=== PATIENT | male | born 1990 | race African-American/Black ===

== ENCOUNTER 2016-07-14 21:39 | Inpatient (IN) | payer OTHER ==
[~2016-07-14] VITALS: Ht 187.9 cm; Wt 119.3 kg
[2016-07-14 21:39] VITALS: BP 120/67
[~2016-07-14 21:39] MED LIST: CIPRO500 MG PO
[2016-07-14 22:00] VITALS: BP 130/73
[2016-07-14 22:10] LABS: BASO # 0.1 10*3/uL (0.0-0.1); BASO % 0.3 % (0.0-1.0); EOS # 0.1 10*3/uL (0.0-0.4); EOS % 0.3 % (1.0-4.0); HEMATOCRIT 48.8 % (42.0-52.0); HEMOGLOBIN 16.1 g/dl (14.0-18.0); IG # 0.1 10*3/uL (0.0-0.1); LYMPH # 1.4 10*3/uL (1.3-4.4); LYMPH % 7.4 % (27.0-41.0); MEAN PLATELET VOLUME 9.6 fl (9.6-12.3); MONO # 0.4 10*3/uL (0.1-1.0); MONO % 1.9 % (3.0-9.0); NEUT # 17.3 10*3/uL (2.3-7.9); NEUT % 89.5 % (47.0-73.0); PLATELET COUNT AUTOMATED 206 10*3/uL (130-400); RED BLOOD COUNT 5.74 10*6/uL (4.50-5.90); RED CELL DISTRI WIDTH 13.2 % (0-14.5); WHITE BLOOD COUNT 19.4 10*3/uL (4.8-10.8)
[2016-07-14 22:30] LABS: ALBUMIN 4.2 gm/dl (3.1-4.5); ALKALINE PHOSPHATASE 55 U/L (45-117); BILIRUBIN, TOTAL 0.4 mg/dl (0.2-1.0); BUN 16 mg/dl (7-24); CARBON DIOXIDE 25 mmol/L (21-32); CHLORIDE 104 mmol/L (98-107); EST GLOM FILT AFRICAN AMERICAN > 60 ml/min; GLUCOSE 175 mg/dL (65-99); POTASSIUM 4.4 mmol/L (3.5-5.1); SGOT/AST 79 IU/L (3-35); SGPT/ALT 275 U/L (12-78); SODIUM 142 mmol/L (136-145); TOTAL PROTEIN 8.2 gm/dL (6.4-8.2); TROPONIN I 0.036 ng/ml (<0.5)
[2016-07-14 22:56] VITALS: BP 121/76
[2016-07-15 00:44] VITALS: BP 142/72
[2016-07-15 00:48] LABS: BILIRUBIN NEGATIVE (NEGATIVE); BLOOD NEGATIVE (NEGATIVE); CLARITY CLEAR (CLEAR); COLOR YELLOW (YELLOW); GLUCOSE TRACE (NEGATIVE); KETONE NEGATIVE (NEGATIVE); LEUKO ESTERASE NEGATIVE (NEGATIVE); NITRITE NEGATIVE (NEGATIVE); PROTEIN 1+ (NEGATIVE); UROBILINOGEN 0.2 E.U./dl (0.2-1.0)
[2016-07-15 01:03] LABS: URINE AMPHETAMINES < 1000 (1000ng/ml); URINE BARBITURATES < 200 (200ng/ml); URINE COCAINE > 300 (300ng/ml); URINE REFLEX COMMENT NO (NO); WBC 0-2 wbc/hpf (0-5)
[2016-07-15 01:10] VITALS: BP 130/66
[2016-07-15 02:49] LABS: LA>2 REFLEX 2 HR DRAW NOW
[2016-07-15 02:55] LABS: LA>2 RFLX FOLLOW UP AT 2 HRS 2.2 mmol/L (0.4-2.0)
[2016-07-15 04:00] VITALS: BP 125/51
[2016-07-15 04:50] LABS: LA>2 REFLEX 4 HR DRAW NOW
[2016-07-15 05:55] LABS: BASO % 0.2 % (0.0-1.0); HEMATOCRIT 46.4 % (42.0-52.0); HEMOGLOBIN 15.2 g/dl (14.0-18.0); IG # 0.1 10*3/uL (0.0-0.1); LYMPH # 1.7 10*3/uL (1.3-4.4); LYMPH % 10.4 % (27.0-41.0); MEAN CELL VOLUME 83.6 fl (80.0-94.0); MEAN CORPUSCULAR HGB 27.4 pg (27.0-31.0); MEAN CORPUSCULAR HGB CONC 32.8 g/dl (33.0-37.0); MEAN PLATELET VOLUME 9.5 fl (9.6-12.3); MONO # 1.1 10*3/uL (0.1-1.0); MONO % 6.7 % (3.0-9.0); NEUT # 13.6 10*3/uL (2.3-7.9); NEUT % 82.3 % (47.0-73.0); PLATELET COUNT AUTOMATED 226 10*3/uL (130-400); RED BLOOD COUNT 5.55 10*6/uL (4.50-5.90); RED CELL DISTRI WIDTH 13.1 % (0-14.5); WHITE BLOOD COUNT 16.6 10*3/uL (4.8-10.8)
[2016-07-15 06:00] LABS: ALBUMIN 4.1 gm/dl (3.1-4.5); ALKALINE PHOSPHATASE 49 U/L (45-117); BILIRUBIN, TOTAL 0.7 mg/dl (0.2-1.0); BUN 14 mg/dl (7-24); CARBON DIOXIDE 34 mmol/L (21-32); CHLORIDE 103 mmol/L (98-107); EST GLOM FILT AFRICAN AMERICAN > 60 ml/min; FREE T4 1.24 ng/dl (0.76-1.46); GLUCOSE 85 mg/dL (65-99); MAGNESIUM 2.3 mg/dL (1.5-2.1); POTASSIUM 5.1 mmol/L (3.5-5.1); SGOT/AST 76 IU/L (3-35); SGPT/ALT 261 U/L (12-78); SODIUM 141 mmol/L (136-145); THYROID STIM HORMONE (HS) 0.643 uIU/ml (0.358-4.75); TOTAL PROTEIN 7.5 gm/dL (6.4-8.2)
[2016-07-15 08:00] VITALS: BP 125/50
[2016-07-15] MEDS ORDERED: LEVAQUIN750 M1 PO (10:03)
[2016-07-20 09:26] LABS: HEPATITIS C VIRUS ANTIBODY >11.0 s/co (0.0-0.9)
== END 2016-07-15 10:35 | disposition home or self-care (01) | DRG 917 ==
LOC: ED 21:39 → EDHOLD 07-15 00:02 → 4E 07-15 00:42 → ICCU 07-15 01:12
PROVIDERS: Student in an Organized Health Care Education/Training Program
DX: T40.1X1A Poisoning by heroin, accidental (unintentional), initial encounter (principal); A41.9 Sepsis, unspecified organism; R65.20 Severe sepsis without septic shock; J69.0 Pneumonitis due to inhalation of food and vomit; E87.2 Acidosis; N17.9 Acute kidney failure, unspecified; S70.01XA Contusion of right hip, initial encounter; E83.51 Hypocalcemia; F14.10 Cocaine abuse, uncomplicated; F12.10 Cannabis abuse, uncomplicated; E66.9 Obesity, unspecified; Z80.9 Family history of malignant neoplasm, unspecified; Z79.899 Other long term (current) drug therapy; Y92.89 Other specified places as the place of occurrence of the external cause; X58.XXXA Exposure to other specified factors, initial encounter; Y93.89 Activity, other specified; Y99.8 Other external cause status; Z68.33 Body mass index [BMI] 33.0-33.9, adult

== ENCOUNTER 2017-03-31 19:58 | Emergency (ER) | payer OTHER ==
[~2017-03-31] VITALS: Ht 187.9 cm; Wt 108.0 kg
[~2017-03-31 19:58] MED LIST changes: +LEVAQUIN750 M1 PO
[2017-03-31] MEDS ORDERED: CYCLOBENZAPRINE10 MG PO (22:10)
[2017-03-31] MEDS ORDERED: MEDROL DOSEPAK4 MG PO (22:10)
[2017-03-31] MEDS ORDERED: NAPROSYN500 MG PO (22:10)
== END 2017-03-31 22:36 | disposition home or self-care (01) ==
LOC: ED 19:58
DX: M54.12 Radiculopathy, cervical region (principal); F12.10 Cannabis abuse, uncomplicated; F17.200 Nicotine dependence, unspecified, uncomplicated; F14.10 Cocaine abuse, uncomplicated; Z79.899 Other long term (current) drug therapy

== ENCOUNTER 2017-05-10 20:23 | Emergency (ER) | payer OTHER ==
[~2017-05-10] VITALS: Ht 187.9 cm; Wt 112.0 kg
[~2017-05-10 20:23] MED LIST changes: +CYCLOBENZAPRINE10 MG PO; +MEDROL DOSEPAK4 MG PO; +NAPROSYN500 MG PO
[2017-05-10 20:58] LABS: BASO # 0.1 10*3/uL (0.0-0.1); BASO % 0.4 % (0.0-1.0); EOS # 0.1 10*3/uL (0.0-0.4); HEMATOCRIT 44.6 % (42.0-52.0); HEMOGLOBIN 14.8 g/dl (14.0-18.0); LYMPH # 1.6 10*3/uL (1.3-4.4); LYMPH % 12.1 % (27.0-41.0); MEAN CELL VOLUME 83.1 fl (80.0-94.0); MEAN CORPUSCULAR HGB 27.6 pg (27.0-31.0); MEAN CORPUSCULAR HGB CONC 33.2 g/dl (33.0-37.0); MEAN PLATELET VOLUME 9.4 fl (9.6-12.3); MONO # 0.5 10*3/uL (0.1-1.0); MONO % 3.7 % (3.0-9.0); NEUT % 82.3 % (47.0-73.0); PLATELET COUNT AUTOMATED 211 10*3/uL (130-400); RED BLOOD COUNT 5.37 10*6/uL (4.50-5.90); RED CELL DISTRI WIDTH 13.2 % (0-14.5); WHITE BLOOD COUNT 13.3 10*3/uL (4.8-10.8)
[2017-05-10 21:15] LABS: ALBUMIN 3.6 gm/dl (3.1-4.5); ALKALINE PHOSPHATASE 53 U/L (45-117); BUN 12 mg/dl (7-24); CHLORIDE 106 mmol/L (98-107); CREATININE 1.08 mg/dL (0.70-1.30); POTASSIUM 3.6 mmol/L (3.5-5.1); SGOT/AST 37 IU/L (3-35); SGPT/ALT 95 U/L (12-78); SODIUM 141 mmol/L (136-145)
[2017-05-10 21:17] LABS: TROPONIN I < 0.015 ng/ml (<0.045)
== END 2017-05-11 00:05 | disposition left against medical advice (07) ==
LOC: ED 20:23
PROVIDERS: Student in an Organized Health Care Education/Training Program
DX: T40.1X1A Poisoning by heroin, accidental (unintentional), initial encounter (principal); J96.90 Respiratory failure, unspecified, unspecified whether with hypoxia or hypercapnia; R51 Headache; F17.200 Nicotine dependence, unspecified, uncomplicated; F12.10 Cannabis abuse, uncomplicated; F14.10 Cocaine abuse, uncomplicated; E66.9 Obesity, unspecified; Z68.34 Body mass index [BMI] 34.0-34.9, adult; Z79.899 Other long term (current) drug therapy; Y92.9 Unspecified place or not applicable

== ENCOUNTER 2017-05-30 22:57 | Emergency (ER) | payer OTHER ==
[~2017-05-30] VITALS: Ht 182.8 cm; Wt 108.9 kg
--- NOTE | ~2017-05-30 | EKG ---
[place], [place] ELECTROCARDIOGRAM REPORT NAME: MARYCRUZ HERNANDEZ UNIT #: [id number] ROOM: DOCTOR: EZRA LEE,KEITH BIRTHDATE: [birth year] DOS: 05/30/2017 TIME: 2255 hours. IMPRESSION: 1. Sinus rhythm. 2. Sinus tachycardia. 3. Nonspecific ST-T changes. 4. Normal QT interval. KEITH MUNGUIA MD CM:EKGRPT:ELECTROCARDIOGRAM REPORT [id number] KEITH MUNGUIA MD
[2017-05-30 23:59] LABS: BASO % 0.3 % (0.0-1.0); EOS # 0.1 10*3/uL (0.0-0.4); EOS % 1.1 % (1.0-4.0); HEMATOCRIT 47.5 % (42.0-52.0); HEMOGLOBIN 15.9 g/dl (14.0-18.0); LYMPH # 1.8 10*3/uL (1.3-4.4); LYMPH % 16.4 % (27.0-41.0); MEAN CELL VOLUME 81.8 fl (80.0-94.0); MEAN CORPUSCULAR HGB 27.4 pg (27.0-31.0); MEAN CORPUSCULAR HGB CONC 33.5 g/dl (33.0-37.0); MEAN PLATELET VOLUME 9.8 fl (9.6-12.3); MONO # 0.5 10*3/uL (0.1-1.0); NEUT # 8.7 10*3/uL (2.3-7.9); NEUT % 77.8 % (47.0-73.0); PLATELET COUNT AUTOMATED 258 10*3/uL (130-400); RED BLOOD COUNT 5.81 10*6/uL (4.50-5.90); WHITE BLOOD COUNT 11.1 10*3/uL (4.8-10.8)
[2017-05-31 00:23] LABS: ALKALINE PHOSPHATASE 65 U/L (45-117); BUN 13 mg/dl (7-24); CHLORIDE 104 mmol/L (98-107); CREATININE 0.97 mg/dL (0.70-1.30); POTASSIUM 3.5 mmol/L (3.5-5.1); SGOT/AST 70 IU/L (3-35); SGPT/ALT 157 U/L (12-78); SODIUM 141 mmol/L (136-145)
[2017-05-31 00:25] LABS: ETHYL ALCOHOL < 3.0 mg/dl (<3); TROPONIN I < 0.015 ng/ml (<0.045)
== END 2017-05-31 00:27 | disposition home or self-care (01) ==
LOC: ED 22:57
PROVIDERS: Emergency Medicine Emergency Medical Services
DX: T50.7X1A Poisoning by analeptics and opioid receptor antagonists, accidental (unintentional), initial encounter (principal); F10.10 Alcohol abuse, uncomplicated; F12.10 Cannabis abuse, uncomplicated; Z79.899 Other long term (current) drug therapy; Z68.30 Body mass index [BMI] 30.0-30.9, adult; Y92.89 Other specified places as the place of occurrence of the external cause

== ENCOUNTER 2017-09-04 21:13 | Emergency (ER) | payer OTHER ==
[~2017-09-04] VITALS: Ht 187.9 cm; Wt 112.0 kg
[2017-09-04] MEDS ORDERED: CLINDAMYCIN150 MG PO (21:25)
[2017-09-04] MEDS ORDERED: NAPROSYN500 MG PO (21:25)
== END 2017-09-04 21:40 | disposition home or self-care (01) ==
LOC: ED 21:13
DX: K02.51 Dental caries on pit and fissure surface limited to enamel (principal); F17.200 Nicotine dependence, unspecified, uncomplicated; E66.9 Obesity, unspecified; F14.10 Cocaine abuse, uncomplicated; F12.10 Cannabis abuse, uncomplicated; Z68.30 Body mass index [BMI] 30.0-30.9, adult

== ENCOUNTER 2018-07-03 18:52 | Emergency (ER) | payer OTHER ==
[~2018-07-03] VITALS: Ht 187.9 cm; Wt 113.4 kg
[~2018-07-03 18:52] MED LIST changes: +CLINDAMYCIN150 MG PO
== END 2018-07-03 22:14 | disposition home or self-care (01) ==
LOC: ED 18:52
DX: S09.90XA Unspecified injury of head, initial encounter (principal); E66.9 Obesity, unspecified; F17.200 Nicotine dependence, unspecified, uncomplicated; Z79.2 Long term (current) use of antibiotics; Z79.899 Other long term (current) drug therapy; Z68.30 Body mass index [BMI] 30.0-30.9, adult; X58.XXXA Exposure to other specified factors, initial encounter; Y93.89 Activity, other specified; Y92.89 Other specified places as the place of occurrence of the external cause; Y99.8 Other external cause status

== ENCOUNTER 2018-07-13 07:20 | Emergency (ER) | payer OTHER ==
[~2018-07-13] VITALS: Ht 187.9 cm; Wt 116.1 kg
[2018-07-13 07:44] LABS: HEMATOCRIT 45.9 % (42.0-52.0); HEMOGLOBIN 15.8 g/dl (14.0-18.0); MEAN CELL VOLUME 81.2 fl (80.0-94.0); MEAN CORPUSCULAR HGB CONC 34.4 g/dl (33.0-37.0); MEAN PLATELET VOLUME 9.5 fl (9.6-12.3); PLATELET COUNT AUTOMATED 203 10*3/uL (130-400); RED BLOOD COUNT 5.65 10*6/uL (4.50-5.90); RED CELL DISTRI WIDTH 12.5 % (0-14.5); WHITE BLOOD COUNT 17.3 10*3/uL (4.8-10.8)
[2018-07-13 07:59] LABS: ALBUMIN 3.7 gm/dl (3.1-4.5); ALKALINE PHOSPHATASE 64 U/L (45-117); BUN 11 mg/dl (7-24); CHLORIDE 100 mmol/L (98-107); CREATININE 0.92 mg/dL (0.70-1.30); POTASSIUM 3.4 mmol/L (3.5-5.1); SGOT/AST 22 IU/L (3-35); SGPT/ALT 75 U/L (12-78); SODIUM 137 mmol/L (136-145); TOTAL PROTEIN 8.1 gm/dL (6.4-8.2)
[2018-07-13 08:02] LABS: TOTAL CELLS COUNTED 100 #CELLS
[2018-07-13 08:03] LABS: PLATELET SUFFICIENCY NORMAL (NORMAL)
[2018-07-13] MEDS ORDERED: ZITHROMAX250 MG PO (08:22)
[2018-07-13] MEDS ORDERED: IMODIUM A-D2 M2 PO (08:24)
[2018-07-13] MEDS ORDERED: ZOFRAN4 MG PO (08:24)
== END 2018-07-13 08:40 | disposition home or self-care (01) ==
LOC: ED 07:20
PROVIDERS: Emergency Medicine
DX: J40 Bronchitis, not specified as acute or chronic (principal); K52.9 Noninfective gastroenteritis and colitis, unspecified; E66.9 Obesity, unspecified; Z68.34 Body mass index [BMI] 34.0-34.9, adult

== ENCOUNTER 2020-11-18 15:26 | Emergency (ER) | payer MEDICAID ==
[~2020-11-18] VITALS: Ht 187.9 cm; Wt 113.4 kg
[~2020-11-18 15:26] MED LIST changes: +IMODIUM A-D2 M2 PO; +ZITHROMAX250 MG PO; +ZOFRAN4 MG PO
== END 2020-11-18 17:09 | disposition home or self-care (01) ==
LOC: ED 15:26
DX: S93.492A Sprain of other ligament of left ankle, initial encounter (principal); F12.10 Cannabis abuse, uncomplicated; F14.10 Cocaine abuse, uncomplicated; F17.200 Nicotine dependence, unspecified, uncomplicated; X50.1XXA Overexertion from prolonged static or awkward postures, initial encounter; Y93.89 Activity, other specified; Y92.89 Other specified places as the place of occurrence of the external cause; Y99.9 Unspecified external cause status

== ENCOUNTER 2021-04-17 21:04 | Emergency (ER) | payer MEDICAID ==
[2021-04-17 21:35] LABS: BILIRUBIN Negative (Negative); BLOOD Negative (Negative); CLARITY Clear (Clear); COLOR Yellow (Yellow); GLUCOSE Negative (Negative); KETONE Negative (Negative); LEUKO ESTERASE Trace (Negative); NITRITE Negative (Negative); PH 5.5 (4.5-8.0); SPECIFIC GRAVITY 1.015 (1.001-1.030); UROBILINOGEN 0.2 E.U./dl (0.0-1.0)
[2021-04-17 21:46] LABS: BACTERIA 1+; EPITHELIAL CELLS 0-2; MUCOUS 1+
== END 2021-04-18 00:20 | disposition left against medical advice (07) ==
LOC: ED 21:04
PROVIDERS: Emergency Medicine
DX: M54.50 Low back pain, unspecified (principal); R35.0 Frequency of micturition; R30.9 Painful micturition, unspecified; F17.200 Nicotine dependence, unspecified, uncomplicated; Z79.2 Long term (current) use of antibiotics; Z79.899 Other long term (current) drug therapy

== ENCOUNTER 2023-06-12 06:13 | Emergency (ER) | payer OTHER ==
[~2023-06-12] VITALS: Ht 185.4 cm; Wt 113.4 kg
== END 2023-06-12 08:35 | disposition home or self-care (01) ==
LOC: ED 06:13
DX: J06.9 Acute upper respiratory infection, unspecified (principal); F14.10 Cocaine abuse, uncomplicated; F12.10 Cannabis abuse, uncomplicated; F17.210 Nicotine dependence, cigarettes, uncomplicated; Z20.822 Contact with and (suspected) exposure to COVID-19

== ENCOUNTER 2023-08-19 14:33 | Emergency (ER) | payer SELFPAY ==
[~2023-08-19] VITALS: Ht 187.9 cm; Wt 113.4 kg
[2023-08-19] MEDS ORDERED: ONDANSETRON4 MG SL (16:34)
[2023-08-19] MEDS ORDERED: PENICILLIN VK500 MG PO (16:34)
[2023-08-19] MEDS ORDERED: Lidocaine Hydrochloride 15 ML UDC PO STA (16:36)
[2023-08-19] MEDS ORDERED: BENZOCAINE 20% 11.9 GM GEL T STA (16:36)
[2023-08-19] MEDS ORDERED: Ondansetron Hydrochloride 4 MG TAB SL ONE (16:40)
== END 2023-08-19 16:58 | disposition home or self-care (01) ==
LOC: ED 14:33
DX: K04.7 Periapical abscess without sinus (principal); R11.0 Nausea; E83.51 Hypocalcemia; F14.10 Cocaine abuse, uncomplicated; F12.10 Cannabis abuse, uncomplicated; F17.200 Nicotine dependence, unspecified, uncomplicated

== ENCOUNTER 2024-01-22 12:59 | Emergency (ER) | payer SELFPAY ==
[~2024-01-22] VITALS: Ht 187.9 cm; Wt 104.3 kg
[~2024-01-22 12:59] MED LIST changes: +ONDANSETRON4 MG SL; +PENICILLIN VK500 MG PO
[2024-01-22] MEDS ORDERED: Tdap Vaccine 0.5 ML SYR (Adult Vaccine) IM ONE (13:20)
== END 2024-01-22 13:35 | disposition home or self-care (01) ==
LOC: ED 12:59
DX: S01.112A Laceration without foreign body of left eyelid and periocular area, initial encounter (principal); F14.10 Cocaine abuse, uncomplicated; F12.10 Cannabis abuse, uncomplicated; F17.200 Nicotine dependence, unspecified, uncomplicated; W22.8XXA Striking against or struck by other objects, initial encounter; Y93.89 Activity, other specified; Y92.009 Unspecified place in unspecified non-institutional (private) residence as the place of occurrence of the external cause; Y99.8 Other external cause status

== ENCOUNTER 2024-05-05 07:09 | Emergency (ER) | payer SELFPAY ==
[~2024-05-05] VITALS: Wt 108.9 kg
[2024-05-05] MEDS ORDERED: SODIUM CHLORIDE 0.9% 1,000 ML IV ONE (07:25)
[2024-05-05] MEDS ORDERED: Ketorolac Tromethamine 15 MG/ML VIAL IV ONE (07:25)
[2024-05-05 07:45] LABS: BASO % 0.5 % (0.0-1.0); EOS # 0.1 10*3/uL (0.0-0.4); EOS % 1.4 % (1.0-4.0); HEMATOCRIT 45.4 % (42.0-52.0); MEAN CELL VOLUME 84.2 fl (80.0-94.0); MEAN CORPUSCULAR HGB 27.3 pg (27.0-31.0); MEAN CORPUSCULAR HGB CONC 32.4 g/dl (33.0-37.0); MEAN PLATELET VOLUME 9.3 fl (9.6-12.3); MONO # 0.5 10*3/uL (0.1-1.0); MONO % 6.1 % (3.0-9.0); NEUT # 6.3 10*3/uL (2.3-7.9); NEUT % 74.6 % (47.0-73.0); PLATELET COUNT AUTOMATED 226 10*3/uL (130-400); RED BLOOD COUNT 5.39 10*6/uL (4.50-5.90); RED CELL DISTRI WIDTH 12.8 % (0-14.5); WHITE BLOOD COUNT 8.5 10*3/uL (4.8-10.8)
[2024-05-05 08:06] LABS: BUN 10 mg/dl (9-23); CHLORIDE 105 mmol/L (98-107)
[2024-05-05] MEDS ORDERED: MELOXICAM15 MG PO (08:10)
[2024-05-05] MEDS ORDERED: AVPAK AZITHROM250 M1 PO (08:10)
== END 2024-05-05 08:24 | disposition home or self-care (01) ==
LOC: ED 07:09
PROVIDERS: Emergency Medicine
DX: R07.89 Other chest pain (principal); J40 Bronchitis, not specified as acute or chronic; F14.10 Cocaine abuse, uncomplicated; F12.10 Cannabis abuse, uncomplicated; F17.290 Nicotine dependence, other tobacco product, uncomplicated